=== PATIENT | male | born 1950 | race Caucasian/White ===

== ENCOUNTER 2019-11-09 06:30 | Day surgery (SDC) | payer MEDICARE ==
--- NOTE | 2019-11-09 08:13 | RAD ---
Exam: Chest one view HISTORY:Status post thoracentesis Comparison: 10/22/2019 FINDINGS: Cardiac silhouette: Normal Aorta: Unremarkable Pulmonary vessels: Normal Costophrenic angles: Small left-sided pleural effusion. Amount of pleural fluid has not significantly decreased compared to the previous exam. There may be loculated fluid in the left lung apex. LUNGS: Stable aeration of the right lung. Persistent lung parenchymal changes in the left lower lobe. Pneumothorax: None Osseous abnormalities: None IMPRESSION: Stable pleural and parenchymal changes in the left hemithorax.
--- NOTE | 2019-11-09 08:36 | OP ---
DATE OF PROCEDURE: 11/09/2019 PROCEDURE PERFORMED: Left thoracentesis. PREOPERATIVE DIAGNOSIS: Left pleural effusion. POSTOPERATIVE DIAGNOSIS: Left pleural effusion. ANESTHESIA: 1% lidocaine without epinephrine. DESCRIPTION OF PROCEDURE: Informed consent was obtained prior to the procedure. The patient understood the risks involved and agreed to proceed. The patient had the procedure performed in the outpatient surgery area of [facility]. His left posterior hemithorax was first scanned with ultrasound to identify the best area to tap the effusion. This was approximately the 6th and 7th interspace at the lateral scapular line posteriorly. Chlorhexidine was used to prep the area and a sterile drape was applied. 1% lidocaine was used to infiltrate the operative site. After local anesthetic had been applied, a [id number]-I-[id number] catheter was placed in the pleural space. Approximately 500 mL of dark tomasz pleural fluid was removed and sent for appropriate studies. The patient did have pain at the conclusion of the procedure, indicating he probably has negative pressure in the chest. It is my assumption that this is an old trapped effusion, which probably will not result in re-expansion of lung tissue. Postoperative x-ray is pending. I would expect to see a loculated pneumothorax in the left base. Given his alcohol history, I do not think he is a candidate for decortication at this time and the space will likely reaccumulate with fluid. Job ID: [id number]
[2019-11-09 08:37] LABS: RBC Count-Automated (BF) 6022 /cu.mm; WBC/Nucleated-Auto (BF) 795 uL
[2019-11-09 08:39] LABS: Fluid, Triglycerides 23 mg/dL (Not Available); Pleural Fluid, Amylase Less than 30 U/L (Not Available); Pleural Fluid, Glucose 66 mg/dL; Pleural Fluid, LDH 173 U/L (Not Available); Pleural Fluid, Protein 2.6 g/dL
[2019-11-09 09:42] LABS: BF Color Yellow; Body Fluid Source Thoracentesis Fluid; Clarity Hazy (Clear); Tube # 3
[2019-11-09 09:46] LABS: BF Segmented Neutrophils 1 %; Cell Count Non Hematic 8 %; Lymphocytes 91 %
[2019-11-09 10:45] LABS: Fluid, pH - Pleural Fld Greater than 7.50 (7.60 - 7.66)
== END 2019-11-09 08:30 | disposition home or self-care (01) ==
LOC: SDC/OP 06:30 → EDBD 14:30
PROVIDERS: ATTEND Internal Medicine Critical Care Medicine
PROC: 0W9B3ZZ Drainage of Left Pleural Cavity, Percutaneous Approach (ICD-10-PCS; principal; 2019-11-09)
DX: J90 Pleural effusion, not elsewhere classified (principal); F10.10 Alcohol abuse, uncomplicated; Z85.820 Personal history of malignant melanoma of skin; Z87.891 Personal history of nicotine dependence
CPT/HCPCS: 32554; 71045; 82150; 82945; 83615; 83986; 84157; 84478; 85060; 87070; 87116; 87205; 87206; 88112; 88305; 89051

== ENCOUNTER 2019-12-26 11:50 | Outpatient (CLI) | payer MEDICARE ==
--- NOTE | 2019-12-26 14:05 | RAD ---
PA AND LATERAL VIEWS CHEST: Date: 12/26/2019 HISTORY: Dyspnea. COMPARISON: 11/09/2019. FINDINGS: A moderate sized left pleural effusion is seen. The heart size is normal. The right lung is clear. No pneumothoraces are seen. IMPRESSION: Moderate size left pleural effusion. POS: AH
== END 2019-12-26 11:51 | disposition home or self-care (01) ==
LOC: BICRAD 11:50
PROVIDERS: ATTEND Internal Medicine Critical Care Medicine
DX: R06.00 Dyspnea, unspecified (principal); J90 Pleural effusion, not elsewhere classified
CPT/HCPCS: 36415; 71046; 80053; 83690; 86480

== ENCOUNTER 2020-04-16 13:25 | Outpatient (CLI) | payer MEDICARE ==
--- NOTE | 2020-04-16 13:52 | RAD ---
PA AND LATERAL VIEWS CHEST: 04/16/20 HISTORY: Dyspnea. COMPARISON: 12/26/19 FINDINGS/IMPRESSION: The moderate sized left pleural effusion is again seen with adjacent opacity in the left lower lung. A small right pleural effusion is noted. The heart size is normal. No pneumothoraces are noted. The opacity in the left lower lung has a more mass-like appearance on the current exam. Further evaluation with CT scan is recommended. POS: OFF
== END 2020-04-16 13:26 | disposition home or self-care (01) ==
LOC: BICRAD 13:25
PROVIDERS: ATTEND Internal Medicine Critical Care Medicine
DX: R06.00 Dyspnea, unspecified (principal); J90 Pleural effusion, not elsewhere classified; R91.8 Other nonspecific abnormal finding of lung field
CPT/HCPCS: 71046